=== PATIENT | female | born 1945 | race Caucasian/White ===

== ENCOUNTER 2022-01-16 10:19 | Inpatient (IN) ==
[2022-01-16] MEDS ORDERED: Nystatin Ointment 15 GM TUBE TP PRN (18:35)
[2022-01-16] MEDS ORDERED: valACYclovir 500 MG TABLET PO PRN (18:35)
[2022-01-16] MEDS ORDERED: Artificial Tears SOLN 15 ML BOTTLE BOTH EYES PRN (21:00)
[2022-01-17 07:57] LABS: Basophils # 0.1 K/mcL (0.0-0.2); Basophils % 0.8 %; Eosinophils # 0.3 K/mcL (0.0-0.6); Eosinophils % 3.2 %; Hematocrit 35.7 % (35.3-44.9); Hemoglobin 11.8 g/dL (11.5-15.4); Immature Granulocytes % 0.3 % (0-4); Lymphocytes # 1.5 K/mcL (0.6-4.6); Lymphocytes % 18.4 %; Mean Corpuscular HGB Conc 33.1 g/dL (31.6-35.5); Mean Corpuscular Hemoglobin 28.1 pg (28.0-33.3); Mean Platelet Volume 8.9 fL (9.4-12.4); Monocytes # 0.7 K/mcL (0.0-1.3); Monocytes % 9.3 %; Neutrophils # 5.4 K/mcL (1.6-8.9); Platelet Count 240 K/mcL (140-400); Red Cell Distribution Width 13.3 % (11.5-14.5); White Blood Count 7.9 K/mcL (4.3-11.1)
[2022-01-17 08:17] LABS: BUN/Creatinine Ratio 25 (6-26); Blood Urea Nitrogen 14 mg/dL (8-23); Calcium 9.2 mg/dL (8.6-10.3); Carbon Dioxide 30 mEq/L (23-29); Chloride 93 mEq/L (98-107); Glucose 99 mg/dL (70-105); Osmolality,Calculated 267 (280-300); Sodium 128 mEq/L (136-145); eGFR For African Americans > 60 (> 60); eGFR For Non-African Americans > 60 (> 60)
[2022-01-17] MEDS: Cyanocobalamin (B-12) 1,000 MCG TABLET PO SCH (10:14)
[2022-01-17] MEDS: Aspirin Enteric Coated 81 MG Tablet PO SCH (10:14)
[2022-01-17] MEDS: Loratadine 10 MG TABLET PO SCH (10:15)
[2022-01-17] MEDS: amLODIPine 5 MG TABLET PO SCH (10:15)
[2022-01-17] MEDS: *HR* LORazepam 1 MG TABLET PO PRN (10:24)
[2022-01-17] MEDS: Sennosides/Docusate Sodium TABLET PO PRN (18:01)
[2022-01-17] MEDS: Budesonide/Formoterol 160/4.5 1 PUFF INH IH SCH (22:16)
[2022-01-18] MEDS ORDERED: Milk and Molasses Enema 200 ML RC ONE (06:22)
[2022-01-18] MEDS: *HR* Enoxaparin 40 MG/0.4 ML SYRINGE SQ SCH (06:37)
[2022-01-18 08:00] LABS: Basophils # 0.1 K/mcL (0.0-0.2); Basophils % 0.7 %; Eosinophils # 0.2 K/mcL (0.0-0.6); Eosinophils % 3.1 %; Hematocrit 35.7 % (35.3-44.9); Hemoglobin 11.8 g/dL (11.5-15.4); Immature Granulocytes % 0.4 % (0-4); Lymphocytes # 1.1 K/mcL (0.6-4.6); Lymphocytes % 15.8 %; Mean Corpuscular HGB Conc 33.1 g/dL (31.6-35.5); Mean Corpuscular Hemoglobin 28.2 pg (28.0-33.3); Mean Corpuscular Volume 85.4 fL (83.0-100.0); Mean Platelet Volume 8.9 fL (9.4-12.4); Monocytes # 0.7 K/mcL (0.0-1.3); Monocytes % 10.1 %; Neutrophils # 4.9 K/mcL (1.6-8.9); Platelet Count 244 K/mcL (140-400); Red Blood Count 4.18 M/mcL (3.82-4.97); Red Cell Distribution Width 13.4 % (11.5-14.5); Segmented Neutrophils % 69.9 %
[2022-01-18 08:24] LABS: BUN/Creatinine Ratio 24 (6-26); Blood Urea Nitrogen 12 mg/dL (8-23); Calcium 8.9 mg/dL (8.6-10.3); Carbon Dioxide 30 mEq/L (23-29); Chloride 95 mEq/L (98-107); Glucose 111 mg/dL (70-105); Osmolality,Calculated 270 (280-300); Sodium 130 mEq/L (136-145); eGFR For African Americans > 60 (> 60); eGFR For Non-African Americans > 60 (> 60)
[2022-01-18] MEDS: amLODIPine 5 MG TABLET PO SCH (10:25)
[2022-01-18] MEDS: Sennosides/Docusate Sodium TABLET PO PRN (10:25)
[2022-01-18] MEDS: Cyanocobalamin (B-12) 1,000 MCG TABLET PO SCH (10:25)
[2022-01-18] MEDS: Loratadine 10 MG TABLET PO SCH (10:26)
[2022-01-18] MEDS: Aspirin Enteric Coated 81 MG Tablet PO SCH (10:26)
[2022-01-18] MEDS: Budesonide/Formoterol 160/4.5 1 PUFF INH IH SCH ×2 (11:01→22:13)
[2022-01-18] MEDS: *HR* LORazepam 1 MG TABLET PO PRN (17:36)
[2022-01-18] MEDS: Hydrocortisone Rectal 2.5% CRM 28 GM TUBE RC PRN (21:28)
[2022-01-19] MEDS: *HR* Enoxaparin 40 MG/0.4 ML SYRINGE SQ SCH ×2 (05:47→06:15)
[2022-01-19] MEDS: Budesonide/Formoterol 160/4.5 1 PUFF INH IH SCH ×2 (08:33→21:22)
[2022-01-19] MEDS: Aspirin Enteric Coated 81 MG Tablet PO SCH (09:41)
[2022-01-19] MEDS: amLODIPine 5 MG TABLET PO SCH (09:41)
[2022-01-19] MEDS: Loratadine 10 MG TABLET PO SCH (09:41)
[2022-01-19] MEDS: *HR* LORazepam 1 MG TABLET PO PRN ×2 (09:42→21:27)
[2022-01-19] MEDS: Cyanocobalamin (B-12) 1,000 MCG TABLET PO SCH (09:46)
[2022-01-19] MEDS: Sennosides/Docusate Sodium TABLET PO PRN (09:46)
[2022-01-19] MEDS: Hydrocortisone Rectal 2.5% CRM 28 GM TUBE RC PRN (09:52)
[2022-01-20] MEDS: *HR* Enoxaparin 40 MG/0.4 ML SYRINGE SQ SCH (06:24)
[2022-01-20] MEDS: Loratadine 10 MG TABLET PO SCH (09:00)
[2022-01-20] MEDS: amLODIPine 5 MG TABLET PO SCH (09:00)
[2022-01-20] MEDS: Aspirin Enteric Coated 81 MG Tablet PO SCH (09:00)
[2022-01-20] MEDS: Cyanocobalamin (B-12) 1,000 MCG TABLET PO SCH (09:00)
[2022-01-20] MEDS: *HR* LORazepam 1 MG TABLET PO PRN ×2 (09:00→21:16)
[2022-01-20] MEDS: Budesonide/Formoterol 160/4.5 1 PUFF INH IH SCH ×2 (09:53→20:13)
[2022-01-21] MEDS: *HR* Enoxaparin 40 MG/0.4 ML SYRINGE SQ SCH (05:55)
[2022-01-21] MEDS: *HR* LORazepam 1 MG TABLET PO PRN ×2 (09:00→20:03)
[2022-01-21] MEDS: Loratadine 10 MG TABLET PO SCH (09:00)
[2022-01-21] MEDS: Cyanocobalamin (B-12) 1,000 MCG TABLET PO SCH (09:00)
[2022-01-21] MEDS: Sennosides/Docusate Sodium TABLET PO PRN (09:00)
[2022-01-21] MEDS: Aspirin Enteric Coated 81 MG Tablet PO SCH (09:00)
[2022-01-21] MEDS: amLODIPine 5 MG TABLET PO SCH (09:00)
[2022-01-21] MEDS: Budesonide/Formoterol 160/4.5 1 PUFF INH IH SCH ×2 (09:06→20:15)
[2022-01-22] MEDS: *HR* Enoxaparin 40 MG/0.4 ML SYRINGE SQ SCH (06:01)
[2022-01-22] MEDS: Budesonide/Formoterol 160/4.5 1 PUFF INH IH SCH ×2 (09:14→21:37)
[2022-01-22] MEDS: Cyanocobalamin (B-12) 1,000 MCG TABLET PO SCH (09:59)
[2022-01-22] MEDS: amLODIPine 5 MG TABLET PO SCH (09:59)
[2022-01-22] MEDS: Aspirin Enteric Coated 81 MG Tablet PO SCH (09:59)
[2022-01-22] MEDS: Loratadine 10 MG TABLET PO SCH (09:59)
[2022-01-22] MEDS: *HR* LORazepam 1 MG TABLET PO PRN (20:38)
[2022-01-23] MEDS: *HR* Enoxaparin 40 MG/0.4 ML SYRINGE SQ SCH (05:29)
[2022-01-23] MEDS: Sennosides/Docusate Sodium TABLET PO PRN (07:22)
[2022-01-23] MEDS: Loratadine 10 MG TABLET PO SCH (07:22)
[2022-01-23] MEDS: amLODIPine 5 MG TABLET PO SCH (07:22)
[2022-01-23] MEDS: Aspirin Enteric Coated 81 MG Tablet PO SCH (07:22)
[2022-01-23] MEDS: *HR* LORazepam 1 MG TABLET PO PRN ×2 (07:23→20:37)
[2022-01-23] MEDS: Cyanocobalamin (B-12) 1,000 MCG TABLET PO SCH (07:23)
[2022-01-23] MEDS: Budesonide/Formoterol 160/4.5 1 PUFF INH IH SCH ×2 (09:30→22:45)
[2022-01-24] MEDS: *HR* Enoxaparin 40 MG/0.4 ML SYRINGE SQ SCH (05:43)
[2022-01-24] MEDS: Aspirin Enteric Coated 81 MG Tablet PO SCH (08:10)
[2022-01-24] MEDS: amLODIPine 5 MG TABLET PO SCH (08:10)
[2022-01-24] MEDS: Cyanocobalamin (B-12) 1,000 MCG TABLET PO SCH (08:10)
[2022-01-24] MEDS: Loratadine 10 MG TABLET PO SCH (08:10)
[2022-01-24] MEDS: *HR* LORazepam 1 MG TABLET PO PRN (08:16)
[2022-01-24] MEDS: Budesonide/Formoterol 160/4.5 1 PUFF INH IH SCH ×2 (09:05→20:39)
[2022-01-24] MEDS: *HR* LORazepam 0.5 MG TABLET PO PRN (21:05)
[2022-01-24] MEDS: Sennosides/Docusate Sodium TABLET PO PRN (21:06)
[2022-01-25] MEDS: *HR* Enoxaparin 40 MG/0.4 ML SYRINGE SQ SCH (05:44)
[2022-01-25] MEDS: Budesonide/Formoterol 160/4.5 1 PUFF INH IH SCH ×2 (08:54→20:09)
[2022-01-25 09:22] LABS: Basophils # 0.1 K/mcL (0.0-0.2); Basophils % 0.8 %; Eosinophils # 0.2 K/mcL (0.0-0.6); Eosinophils % 2.3 %; Hematocrit 36.9 % (35.3-44.9); Hemoglobin 12.3 g/dL (11.5-15.4); Immature Granulocytes % 0.5 % (0-4); Lymphocytes # 1.1 K/mcL (0.6-4.6); Lymphocytes % 15.9 %; Mean Corpuscular HGB Conc 33.3 g/dL (31.6-35.5); Mean Corpuscular Hemoglobin 28.5 pg (28.0-33.3); Mean Corpuscular Volume 85.6 fL (83.0-100.0); Mean Platelet Volume 8.9 fL (9.4-12.4); Monocytes # 0.5 K/mcL (0.0-1.3); Monocytes % 7.7 %; Neutrophils # 4.8 K/mcL (1.6-8.9); Platelet Count 246 K/mcL (140-400); Red Blood Count 4.31 M/mcL (3.82-4.97); Red Cell Distribution Width 13.4 % (11.5-14.5); Segmented Neutrophils % 72.8 %; White Blood Count 6.6 K/mcL (4.3-11.1)
[2022-01-25] MEDS: Aspirin Enteric Coated 81 MG Tablet PO SCH (09:39)
[2022-01-25] MEDS: amLODIPine 5 MG TABLET PO SCH (09:39)
[2022-01-25] MEDS: Cyanocobalamin (B-12) 1,000 MCG TABLET PO SCH (09:39)
[2022-01-25] MEDS: Loratadine 10 MG TABLET PO SCH (09:39)
[2022-01-25 09:52] LABS: BUN/Creatinine Ratio 20 (6-26); Blood Urea Nitrogen 11 mg/dL (8-23); Carbon Dioxide 26 mEq/L (23-29); Chloride 93 mEq/L (98-107); Glucose 180 mg/dL (70-105); Osmolality,Calculated 264 (280-300); Potassium 3.7 mEq/L (3.5-5.1); Sodium 125 mEq/L (136-145); eGFR For African Americans > 60 (> 60); eGFR For Non-African Americans > 60 (> 60)
[2022-01-25] MEDS ORDERED: polyethylene glycoL 3350 17 GM POWD.PACK PO PRN (09:53)
[2022-01-25] MEDS: *HR* LORazepam 0.5 MG TABLET PO PRN (20:20)
[2022-01-26] MEDS: *HR* Enoxaparin 40 MG/0.4 ML SYRINGE SQ SCH (06:22)
[2022-01-26] MEDS: Budesonide/Formoterol 160/4.5 1 PUFF INH IH SCH ×2 (08:34→20:43)
[2022-01-26] MEDS: Aspirin Enteric Coated 81 MG Tablet PO SCH (09:41)
[2022-01-26] MEDS: amLODIPine 5 MG TABLET PO SCH (09:41)
[2022-01-26] MEDS: Cyanocobalamin (B-12) 1,000 MCG TABLET PO SCH (09:41)
[2022-01-26] MEDS: *HR* LORazepam 0.5 MG TABLET PO PRN ×2 (09:41→22:14)
[2022-01-26] MEDS: Loratadine 10 MG TABLET PO SCH (09:41)
[2022-01-27] MEDS: *HR* Enoxaparin 40 MG/0.4 ML SYRINGE SQ SCH (05:19)
[2022-01-27] MEDS: Cyanocobalamin (B-12) 1,000 MCG TABLET PO SCH ×3 (08:36→22:11)
[2022-01-27] MEDS: amLODIPine 5 MG TABLET PO SCH ×3 (08:36→22:11)
[2022-01-27] MEDS: Loratadine 10 MG TABLET PO SCH ×3 (08:36→22:11)
[2022-01-27] MEDS: Aspirin Enteric Coated 81 MG Tablet PO SCH (08:36)
[2022-01-27] MEDS: Budesonide/Formoterol 160/4.5 1 PUFF INH IH SCH ×2 (09:17→23:15)
[2022-01-27] MEDS: Sennosides/Docusate Sodium TABLET PO PRN ×2 (09:18→19:49)
[2022-01-27] MEDS: *HR* LORazepam 0.5 MG TABLET PO PRN (19:50)
[2022-01-28] MEDS: *HR* Enoxaparin 40 MG/0.4 ML SYRINGE SQ SCH (06:12)
[2022-01-28] MEDS: amLODIPine 5 MG TABLET PO SCH (08:12)
[2022-01-28] MEDS: Cyanocobalamin (B-12) 1,000 MCG TABLET PO SCH (08:12)
[2022-01-28] MEDS: Aspirin Enteric Coated 81 MG Tablet PO SCH (08:12)
[2022-01-28] MEDS: Loratadine 10 MG TABLET PO SCH (08:12)
[2022-01-28] MEDS: Budesonide/Formoterol 160/4.5 1 PUFF INH IH SCH ×2 (08:15→21:27)
[2022-01-28] MEDS: *HR* LORazepam 0.5 MG TABLET PO PRN (20:13)
[2022-01-28] MEDS: Sennosides/Docusate Sodium TABLET PO PRN (20:14)
[2022-01-29] MEDS: *HR* Enoxaparin 40 MG/0.4 ML SYRINGE SQ SCH (05:35)
[2022-01-29 07:13] VITALS: BP 124/67; PULSE 66; RESP 17; TEMP 97.7; O2SAT 100
[2022-01-29 08:08] LABS: BUN/Creatinine Ratio 20 (6-26); Blood Urea Nitrogen 12 mg/dL (8-23); Calcium 9.2 mg/dL (8.6-10.3); Carbon Dioxide 28 mEq/L (23-29); Chloride 94 mEq/L (98-107); Glucose 98 mg/dL (70-105); Osmolality,Calculated 264 (280-300); Potassium 4.1 mEq/L (3.5-5.1); Sodium 127 mEq/L (136-145); eGFR For African Americans > 60 (> 60); eGFR For Non-African Americans > 60 (> 60)
[2022-01-29] MEDS: Budesonide/Formoterol 160/4.5 1 PUFF INH IH SCH (08:37)
[2022-01-29] MEDS: Loratadine 10 MG TABLET PO SCH (09:24)
[2022-01-29] MEDS: Cyanocobalamin (B-12) 1,000 MCG TABLET PO SCH (09:24)
[2022-01-29] MEDS: amLODIPine 5 MG TABLET PO SCH (09:24)
[2022-01-29] MEDS: Aspirin Enteric Coated 81 MG Tablet PO SCH (09:24)
== END 2022-01-29 13:55 | disposition home health service (06) | DRG 641 ==
LOC: INPPIK 12:15
PROVIDERS: ADMIT Family Medicine; ATTEND Family Medicine